=== PATIENT | female | born 1945 | race Caucasian/White ===

== ENCOUNTER 2021-12-26 15:25 | Inpatient (IN) | payer MEDICARE, OTHER ==
[~2021-12-26] VITALS: Ht 162.6 cm; Wt 80.5 kg
[~2021-12-26 15:25] MED LIST: AMBIEN10 MG PO; AMOX TR-K CLV1 EAC4 PO; AUGMENTIN 875-1 EACH PO; AZITHROMYCIN250 MG PO; BACLOFEN 20MG T20 MG PO; BENTYL10 MG PO; CELEXA10 MG PO; CLONAZEPAM 1MG T1 MG PO; ELIQUIS5 MG PO; FOLIC ACID1 MG PO; HORMONE PILL; KLONOPIN0.5 MG PO; LEVAQUIN750 MG PO; METRONIDAZOLE500 MG PO; NEURONTIN300 MG PO; ONDANSETRON ODT4 MG SL; OXYCODONE HCL10 MG PO; PHENERGAN25 M1 PO; PROTONIX 40MG T40 MG PO; REMERON15 MG PO; SINGULAIR10 MG PO; STOOL SOFTENER100 MG PO; SYNTHROID50 MCG PO; TOPROL XL 25MG25 MG PO; VITAMIN B-121000 MC1 IM
[2021-12-26 16:09] LABS: BASOPHIL 0.4 % (0-2); EOSINOPHIL 0.6 % (0-7); HCT 38.3 % (37.0-47.0); HGB 12.6 g/dl (12.5-16.0); LYMPHOCYTE 3.7 % (15-48); MCH 29.5 pg (25.0-31.0); MCHC 32.9 g/dL (32.0-36.0); MCV 89.7 fL (78.0-100.0); MONOCYTE 7.7 % (0-12); MPV 10.7 fL (6.0-9.5); NRBC 0; PLT 248 K/uL (150-400); RBC 4.27 M/uL (4.20-5.40); RDW 14.4 % (11.5-14.0); WBC 10.3 K/uL (4.0-10.5)
[2021-12-26 16:29] LABS: LACTIC ACID 1.1 mmol/L (0.4-1.9)
[2021-12-26 16:34] LABS: BILIRUBIN NEGATIVE (NEGATIVE); BLOOD NEGATIVE Ery/uL (NEGATIVE); CLARITY CLEAR (CLEAR); COLOR YELLOW (YELLOW); GLUCOSE (U) NORMAL (NORMAL); LEUKOCYTES 2+ Leu/uL (NEGATIVE); NITRITE NEGATIVE (NEGATIVE); PROTEIN NEGATIVE (NEGATIVE); pH 6.5 (5.0-9.0)
[2021-12-26 16:38] LABS: ALBUMIN 3.7 g/dL (3.4-5.0); BILIRUBIN - TOTAL 0.3 mg/dL (0.2-1.0); CREATININE 1.12 mg/dL (0.51-0.95); POTASSIUM 4.2 mmol/L (3.5-5.1); TOTAL PROTEIN 6.7 g/dL (6.4-8.2)
[2021-12-26 16:41] LABS: BACTERIA 1+
--- NOTE | 2021-12-27 14:59 | NUR ---
12/27/21 Ms. Martinez's 26 y/o grandson lives in the home. She is independent in the home and community. She does not use DME. - Ms. Martinez chose [facility] if 02 or HH is needed at discharge.
[2021-12-28 06:49] LABS: BASOPHIL 0.2 % (0-2); EOSINOPHIL 0 % (0-7); HCT 36.5 % (37.0-47.0); HGB 11.7 g/dl (12.5-16.0); LYMPHOCYTE 12.2 % (15-48); MCH 29.5 pg (25.0-31.0); MCHC 32.1 g/dL (32.0-36.0); MCV 92.2 fL (78.0-100.0); MONOCYTE 10.4 % (0-12); MPV 11.6 fL (6.0-9.5); NEUTROPHIL 76.7 % (41-80); NRBC 0; PLT 221 K/uL (150-400); RBC 3.96 M/uL (4.20-5.40); RDW 14.5 % (11.5-14.0)
[2021-12-28 06:50] LABS: BUN/CREAT RATIO (CALC) 16.7 RATIO; CREATININE 0.9 mg/dL (0.51-0.95)
[2021-12-28] MEDS ORDERED: CEFDINIR300 MG PO (10:34)
[2021-12-28] MEDS ORDERED: ONDANSETRON ODT4 MG PO (10:34)
[2021-12-28] MEDS ORDERED: DEXAMETHASONE 2M2 MG PO (10:48)
[2021-12-28] MEDS ORDERED: VIBRAMYCIN100 MG PO (10:52)
== END 2021-12-28 12:42 | disposition home or self-care (01) | DRG 177 ==
LOC: FER 15:25 → FMS 17:02
PROVIDERS: Emergency Medicine; ADMIT Internal Medicine
PROC: 3E0333Z Introduction of Anti-inflammatory into Peripheral Vein, Percutaneous Approach (ICD-10-PCS; principal; 2021-12-26)
PROC: XW033E5 Introduction of Remdesivir Anti-infective into Peripheral Vein, Percutaneous Approach, New Technology Group 5 (ICD-10-PCS; 2021-12-26)
PROC: 8E0ZXY6 Isolation (ICD-10-PCS; 2021-12-26)
DX: U07.1 COVID-19 (principal); J12.82 Pneumonia due to coronavirus disease 2019; J96.01 Acute respiratory failure with hypoxia; N39.0 Urinary tract infection, site not specified; F41.9 Anxiety disorder, unspecified; F32.A Depression, unspecified; G47.00 Insomnia, unspecified; K21.9 Gastro-esophageal reflux disease without esophagitis; E03.9 Hypothyroidism, unspecified; Z96.653 Presence of artificial knee joint, bilateral; Z88.5 Allergy status to narcotic agent; Z90.49 Acquired absence of other specified parts of digestive tract; Z79.899 Other long term (current) drug therapy; Z28.311 Partially vaccinated for COVID-19; Z82.49 Family history of ischemic heart disease and other diseases of the circulatory system
CPT/HCPCS: 36415; 36600; 71045; 80048; 80053; 81001; 82803; 83605; 84145; 85025; 85379; 87040; 87076; 87088; 94640; 94667; 94668; C9399; J0696; J1100; J1650; J7030; J7050; J8540; U0002